=== PATIENT | male | born 1980 | race Caucasian/White ===

== ENCOUNTER 2022-02-25 19:03 | Inpatient (IN) | payer SELFPAY ==
[2022-02-25 19:14] VITALS: BP 122/53; PULSE 84; RESP 18; TEMP 36.7; O2SAT 97
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
[2022-02-25 19:30] VITALS: RESP 18
[2022-02-25] MEDS: HYDROmorphone 1 mg/mL INJ 1 mL IVP ×2 (19:30→20:22)
[2022-02-25] MEDS: ondansetron 2 mg/ML SDV 2 mL 4 MG IVP (19:30)
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
[2022-02-25] MEDS: tetanus-dipt-pertussis 0.5 mL SDV IM (20:09)
[2022-02-25 20:22] VITALS: RESP 17
--- NOTE | 2022-02-25 20:34 | ECG_ITS ---
[facility] Test Date: 2022-02-25 Pat Name: Gilberto Webster Department: Room: Gender: Male Overhead Door Technician: : 1980 Requested By: Tristan Shaw Order Number: [id number] Beau MD: Lenny Cloud M.D. Measurements Intervals [place] Rate: 64 P: 65 CO: 261 QRS: 52 QRSD: 101 T: 60 QT: 373 QTc: 387 Interpretive Statements SINUS RHYTHM WITH FIRST DEGREE AV BLOCK INTERPRETATION BASED ON A DEFAULT AGE OF 40 YEARS No previous ECG available for comparison Electronically Signed On 02-26-2022 8:37:16 CDT by Lenny Cloud M.D. [email or web address]
[2022-02-25 20:47] LABS: Basophils # 0.1 10^3/uL (0.0-0.1); Basophils % 0.5 %; Eosinophils # 0.1 10^3/uL (0.0-0.8); Eosinophils % 0.7 %; Hematocrit 38.7 % (42.0-52.0); Hemoglobin 13.2 g/dL (11.7-16.6); Lymphocytes # 3.9 10^3/uL (0.8-4.8); Mean Corpuscular HGB Conc 34.1 g/dL (30.0-36.0); Mean Corpuscular Hemoglobin 31.7 pg (28.0-34.0); Mean Platelet Volume 11.8 fL (7.4-10.4); Monocytes # 0.9 10^3/uL (0.2-0.9); Monocytes % 9.1 %; Neutrophils # 5.05 10^3/uL (1.8-7.7); Neutrophils % 50.4 %; Nucleated Red Blood Cells % 0 %; Platelet Count 225 10^3/cmm (130-400); Red Blood Count 4.16 10^6/uL (4.1-5.3); Red Cell Distribution Width 13.5 % (12.1-15.1)
[2022-02-25 20:58] LABS: Alanine Aminotransferase 9 U/L (0-41); Albumin Level 4.1 g/dL (3.5-5.2); Alkaline Phosphatase 68 IU/L (40-130); Anion Gap 19.2 (5-19); Aspartate Amino Transferase 14 U/L (0-40); Blood Urea Nitrogen 9 mg/dL (6-20); Calcium 9.3 mg/dL (8.5-10.5); Carbon Dioxide 21 mmol/L (22-29); Chloride 101 mmol/L (98-107); Globulin 2.9 g/dL (1.3-4.6); Glomerular Filtration Rate 73.4 mL/min (90-130); Glucose 114 mg/dL (65-115); Osmolality Calculated 286 mOsm/kg (285-295); Potassium 3.2 mmol/L (3.5-5.1); Sodium 138 mmol/L (136-145); Total Bilirubin 0.4 mg/dL (0.15-1.2)
[2022-02-25 22:17] VITALS: BP 114/71; PULSE 88; RESP 17; O2SAT 99
[2022-02-25 22:46] VITALS: BP 127/85; PULSE 88; RESP 18; TEMP 36.8; O2SAT 98; BMI 24.4
[2022-02-26] VITALS (30 sets, daily range): BP systolic 108–158; BP diastolic 57–96; PULSE 68–103; RESP 12–20; TEMP 36.2–37.7; O2SAT 79–100
--- NOTE | 2022-02-26 | SCC_ITS ---
PROCEDURE DONE: Amy T2 alpha 10 mm x 330 mm nail Single dynamic proximal medial to lateral screw and distal locking screws x2 129.2 seconds of fluoroscopic guidance, for a cumulative dose of 2.70 mGy, was provided to Dr. Boyer by the radiology department. C-arm images of the RIGHT tibia fibula were saved for the patient's permanent record. [facility]
[2022-02-26] MEDS: HYDROmorphone 1 mg/mL INJ 1 mL IVP ×6 (00:01→20:16)
[2022-02-26] MEDS: lactated ringers 1,000 ML 120 ML IV (00:04)
[2022-02-26] MEDS: ceFAZolin 1,000 MG in sodium chloride 0.9% (plus) 50 ML 100 MG IV ×3 (02:30→11:00)
--- NOTE | 2022-02-26 07:28 | PC.NURSE ---
Bedside report completed with GIRISH James.
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
--- NOTE | 2022-02-26 09:02 | ANES.PREANE2 ---
Pre-Anesthetic Assessment Height/Weight: Height 1.8 m Weight 79.379 kg Temp Pulse Resp BP Pulse Ox 97.9 F 71 18 120/75 94 02/26/22 07:12 02/26/22 07:12 02/26/22 07:41 02/26/22 07:12 02/26/22 07:12 Preop Diagnosis: Fracture right tibia and fibula Operation Date: 02/26/22 12:15 Proposed Procedures p IM Tibial Nail Insertion(Right) - Errol Boyer MD Familial anesthetic complications: None Was Beta Irene taken within 24 hours: N/A Was Clonidine taken within 24 hours: N/A Last intake: > 8hrs Social Alcohol and Tobacco Exam alert, oriented x 3, clear to auscultation bilaterally and regular rate & rhythm Airway Mallampati: Class III Dentition: chipped Anesthetic Plan ASA status: 2 Anesthesia: General Risk of > 500 ml blood loss (7ml/kg in children): No Medications/Allergies Allergies Allergy/AdvReac Type Severity Reaction Status Date / Time No Known Allergies Allergy Verified 02/25/22 19:17 Current Medications Generic Name Dose Route Start Last Admin Trade Name Freq PRN Reason Stop Dose Admin Hydromorphone HCl 1 mg 02/25/22 22:46 02/26/22 07:41 Hydromorphone 1 Mg/Ml Inj 1 Ml IVP 1 mg Q2H PRN Administration pain Lactated Ringer's 1,000 mls @ 120 mls/hr 02/25/22 22:46 02/26/22 00:04 Lactated Ringers IV 120 mls/hr .[id number] KEYSHA Administration Cefazolin Sodium 1,000 mg/ 50 mls @ 100 mls/hr 02/26/22 02:00 02/26/22 07:42 Sodium Chloride IV 100 mls/hr Q6H KEYSHA Administration Protocol Data Anesthesia : 02/25/22 19:22 02/25/22 19:22 Short CBC 02/25/22 Range/Units 19:22 WBC 10.0 (4.0-10.0) 10^3/uL Hgb 13.2 (11.7-16.6) g/dL Hct 38.7 L (42.0-52.0) % MCV 93.0 (80-94) fl Plt Count 225 (130-400) 10^3/cmm Neut % (Auto) 50.4 % Neut # (Auto) 5.05 (1.8-7.7) 10^3/uL BMP 02/25/22 19:22 Sodium 138 Potassium 3.2 L Chloride 101 Carbon Dioxide 21 L BUN 9 Creatinine 1.1 Glucose 114 Calcium 9.3 Liver Function 02/25/22 Range/Units 19:22 Total Bilirubin 0.4 (0.15-1.2) mg/dL AST 14 (0-40) U/L ALT 9 (0-41) U/L Alkaline Phosphatase 68 (40-130) IU/L Albumin 4.1 (3.5-5.2) g/dL Cardiac Studies: No Data to Display
[2022-02-26] MEDS: sodium chloride 0.9% 1,000 ML 30 ML IV (09:36)
--- NOTE | 2022-02-26 12:03 | XR_ITS ---
WS: [id number] INTRAOPERATIVE TECHNIQUE: 9 Spot fluoroscopic images for intraoperative purposes. FLUOROSCOPY TIME: 129.2 seconds CLINICAL INFORMATION: OR PICS COMPARISON: None. FINDINGS: Intramedullary tomasz fixation RIGHT tibia with screw fixation across the proximal and distal tibial met adiaphysis. Stable slightly displaced fracture involving the mid fibula XR/XR tibia fibula RT 2V [id number] IMPRESSION: Images obtained for intraoperative purposes.
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
[2022-02-26] MEDS: fentaNYL 50 mcg/mL INJ 2mL IVP (12:30)
[2022-02-26] MEDS: morphine 4 mg/mL SDV 1 mL IVP ×3 (13:34→16:35)
[2022-02-26] MEDS: sodium chloride 0.9% 1,000 ML 80 ML IV (13:38)
[2022-02-26] MEDS: oxyCODONE 5 mg IR Tab/Cap PO (14:59)
--- NOTE | 2022-02-26 17:52 | PC.NURSE ---
Dr. Boyer notified that patient pain not being controlled by morphine IVP or oxycodone. Orders received for hydromorphone 1mg q1h PRN.
[2022-02-27] VITALS (12 sets, daily range): BP systolic 114–139; BP diastolic 68–87; PULSE 92–113; RESP 15–20; TEMP 36.6–38.1; O2SAT 90–95
[2022-02-27] MEDS: HYDROmorphone 1 mg/mL INJ 1 mL IVP ×2 (02:17→06:05)
[2022-02-27] MEDS: sodium chloride 0.9% 1,000 ML 80 ML IV ×2 (02:17→15:19)
[2022-02-27 04:44] LABS: Basophils % 0.3 %; Eosinophils % 0.1 %; Hematocrit 30.8 % (42.0-52.0); Hemoglobin 10.9 g/dL (11.7-16.6); Lymphocytes # 1.9 10^3/uL (0.8-4.8); Lymphocytes % 15.5 %; Mean Corpuscular HGB Conc 35.4 g/dL (30.0-36.0); Mean Corpuscular Hemoglobin 31.8 pg (28.0-34.0); Mean Corpuscular Volume 89.8 fl (80-94); Mean Platelet Volume 10.7 fL (7.4-10.4); Monocytes # 1.7 10^3/uL (0.2-0.9); Monocytes % 14.3 %; Neutrophils # 8.35 10^3/uL (1.8-7.7); Neutrophils % 69.3 %; Nucleated Red Blood Cells % 0 %; Platelet Count 225 10^3/cmm (130-400); Red Blood Count 3.43 10^6/uL (4.1-5.3); Red Cell Distribution Width 13.3 % (12.1-15.1); White Blood Count 12.1 10^3/uL (4.0-10.0)
[2022-02-27] MEDS: oxyCODONE 5 mg IR Tab/Cap PO (07:36)
[2022-02-27] MEDS: oxyCODONE 5 mg IR Tab/Cap 10 MG PO ×5 (08:30→21:22)
[2022-02-27] MEDS: aspirin 325 mg EC Tablet PO (08:31)
--- NOTE | 2022-02-27 10:39 | PC.OT ---
Occupational Therapy evaluation received. Chart reviewed. Therapist attempted evaluation this morning with patient declining stating I'm not doing anything today...it hurts too bad . Medication was given 30 minutes prior to therapist arrival. Therapist educated on Occupational Therapy role, though patient continues to decline services at this time. Will attempt OT evaluation tomorrow. Asif Melgar OTR/L
--- NOTE | 2022-02-27 10:41 | PC.NURSE ---
Cefazolin I went to hang 3 dose of antibiotic on pt when I noticed that the 2nd dose was not infused, talked with Tamar and pharmacy regarding this. 3rd dose rescheduled for 1900.
[2022-02-27 18:58] LABS: Urine Appearance Clear (CLEAR); Urine Color Yellow (Yellow)
[2022-02-27 18:59] LABS: Add Urine Culture? No; Add Urine Microscopic? YES; Bacteria Urine TRACE /hpf; Bilirubin Urine Neg (Negative); Blood Urine 2+ (Negative); Glucose Urine UA 1+ (Normal); Ketones Urine Negative (Negative); Leukocyte Esterase Urine Negative (Negative); Nitrate Urine Negative (Negative); Protein Urine Neg (Negative); RBC Urine 0-4 /hpf (0-2); Squamous Epithelial Cell Urine 0-4 /hpf (0-5); Urobilinogen Urine Norm (Negative); WBC Urine 0-4 /hpf (0-5); pH Urine 7 (5-7)
--- NOTE | 2022-02-27 20:32 | PM.PN ---
Subjective Subjective: Still complains of pain, control better with po oxycodone Vitals/I&O/Wt Last Vital Signs Temp 98 F 02/27/22 16:00 Pulse 92 02/27/22 16:00 Resp 18 02/27/22 18:24 BP 131/80 02/27/22 16:00 Pulse Ox 94 02/27/22 16:00 02/27/22 02/27/22 02/27/22 06:59 14:59 22:59 Intake Total 1050 / 1406.5 1530 / 1530 170 / 1700 Output Total 450 / 1550 2685 / 2685 575 / 3260 Balance 600 / -143.5 -1155 / -1155 -405 / -1560 Weight last 48 hrs Weight 175 lb Physical Exam Narrative: Right leg soft. Swelling ankle distal to dressing. Sensation intact right foot Data : 02/27/22 04:00 02/25/22 19:22 A&P Assessment and plan (1) Open fracture of right tibia and fibula: Status: Acute (2) Status post open reduction and internal fixation (ORIF) of fracture: Continue pain meds. Mobilize with therapy. Status: Acute Attestations Medical Necessity Statement*: Home once independent with walker/crutches and pain ok. Coding Level of Care Code Acute Coach Professional Athletes for Brenna Alegre Diagnoses Status post open reduction and internal fixation (ORIF) of fracture Z98.890; Z87.81 Open fracture of right tibia and fibula S82.201B; S82.401B
[2022-02-27] MEDS: acetaminophen 325 mg Tablet 650 MG PO (23:16)
[2022-02-27] MEDS: ondansetron 2 mg/ML SDV 2 mL 4 MG IVP (23:18)
[2022-02-27] MEDS: metoclopramide 5 mg/mL SDV 2 mL 10 MG IVP (23:20)
[2022-02-28] VITALS (9 sets, daily range): BP systolic 100–124; BP diastolic 55–86; PULSE 70–105; RESP 14–18; TEMP 36.4–37.4; O2SAT 95–99
[2022-02-28] MEDS: oxyCODONE 5 mg IR Tab/Cap 10 MG PO ×3 (02:01→10:21)
[2022-02-28] MEDS: sodium chloride 0.9% 1,000 ML 80 ML IV (04:35)
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
[2022-02-28] MEDS: aspirin 325 mg EC Tablet PO (08:35)
--- NOTE | 2022-02-28 12:00 | PC.OT ---
OT EVALUATION HELD THIS DATE PATIENT IS SCHEDULED FOR DISCHARGE.
== END 2022-02-28 12:41 | disposition home or self-care (01) | DRG 494 ==
LOC: ER 20:37 → MEDSURG 21:20
PROVIDERS: Admitting Provider Orthopaedic Surgery; Emergency Provider Emergency Medicine; Visit Provider Orthopaedic Surgery
PROC: 0QSG06Z Reposition Right Tibia with Intramedullary Internal Fixation Device, Open Approach (ICD-10-PCS; principal; 2022-02-26 11:45)
DX: S82.231B Displaced oblique fracture of shaft of right tibia, initial encounter for open fracture type I or II (principal); S82.431B Displaced oblique fracture of shaft of right fibula, initial encounter for open fracture type I or II; W55.32XA Struck by other hoof stock, initial encounter
CPT/HCPCS: 12001; 36415; 71045; 73590; 76000; 80053; 81001; 85025; 90471; 90715; 93005; 96365; 96375; 96376; 97110; 97161; 99285; C1713; J0690; J1170; J2250; J2270; J2405; J2704; J2765; J3010; J7030

== ENCOUNTER → 2022-03-14 09:22 | Outpatient (BNVA) | payer SELFPAY | PROVIDERS: Visit Provider Nurse Practitioner Family | DX: S82.201D Unspecified fracture of shaft of right tibia, subsequent encounter for closed fracture with routine healing (principal); S82.401D Unspecified fracture of shaft of right fibula, subsequent encounter for closed fracture with routine healing; X58.XXXD Exposure to other specified factors, subsequent encounter | CPT/HCPCS: 73590 ==

== ENCOUNTER → 2025-05-28 07:58 | Outpatient (BNVA) | payer SELFPAY | DX: R39.9 Unspecified symptoms and signs involving the genitourinary system (principal) | CPT/HCPCS: 81000; 87086 ==

== ENCOUNTER 2025-05-28 19:16 | Inpatient (IN) | payer SELFPAY ==
[2025-05-28 19:22] VITALS: BP 119/57; PULSE 92; RESP 18; TEMP 36.8; O2SAT 98; BMI 22.6
[2025-05-28 20:32] LABS: Hematocrit 36.1 % (37-53); Hemoglobin 12.80 g/dL (11.27-16.99); Mean Corpuscular HGB Conc 35.5 g/dL (30-55); Mean Corpuscular Hemoglobin 31.1 pg (27-33); Mean Corpuscular Volume 87.8 fl (82-101); Nucleated Red Blood Cells % 0 %; Platelet Count 294 10^3/cmm (157-399); Red Blood Count 4.11 10^6/uL (3.85-5.65); White Blood Count 9.75 10^3/uL (3.29-11.43)
[2025-05-28 20:51] LABS: Albumin Level 3.7 g/dL (3.5-5.2); Alkaline Phosphatase 269 U/L (40-130); Anion Gap 14.9 (5-19); Blood Urea Nitrogen 13 mg/dL (6-20); Calcium 9.2 mg/dL (8.5-10.5); Carbon Dioxide 26 mmol/L (22-29); Chloride 101 mmol/L (98-107); Creatinine Clr Calc Pharmacy 123.1431; Globulin 3.8 g/dL (1.3-4.6); Glucose 98 mg/dL (65-115); Osmolality Calculated 286 mOsm/kg (285-295); Potassium 3.9 mmol/L (3.5-5.1); Sodium 138 mmol/L (136-145); Total Protein 7.5 g/dL (6.6-8.7)
[2025-05-28 21:02] LABS: Alanine Aminotransferase 3306 U/L (0-41)
[2025-05-28 21:03] LABS: Aspartate Amino Transferase 1902 U/L (0-40)
[2025-05-28 21:57] VITALS: BP 127/78; PULSE 91; RESP 16; O2SAT 98
[2025-05-28 22:23] LABS: INR 0.97 (0.8-1.2); Prothrombin Time 13.60 SECONDS (12.1-14.9)
[2025-05-28 22:24] LABS: Partial Thromboplastin Time 30.3 SECONDS (23.9-36.7)
--- NOTE | 2025-05-28 22:25 | ED_ITS ---
HPI - Recheck/Abnormal Lab/Rx 2 General: Chief Complaint: Recheck/Abnormal Lab/Rx Stated Complaint: urine discolored confused eyes yellow Time Seen by Provider: 05/28/25 21:52 Source: patient Mode of arrival: ambulatory Limitations: no limitations History of Present Illness: Patient is a 44-year-old male who presents to the emergency department complaining of dizziness for the past 5 days. Along with the dizziness he notes very dark urine, confusion, and noticing that his eyes and skin have been yellow. Denies taking any Tylenol, does report a history of IV drug use however, but states he does not share needles. States he used to have history of alcoholism but has not drank for the past 10 years. He is not reporting any fever or chills, abdominal pain, nausea or vomiting, stool abnormalities, or seizure-like activity. Denies any recent transfusions. No travel to any endemic areas. At this time he is not showing any signs of confusion or altered mental status, he is not endorsing any easy bruising or bleeding. While in the waiting room critical result of total bilirubin of 12.1. His vitals are stable at this time. MD complaint: other (Dizziness, confusion, scleral icterus, jaundice, dark urine) Related Data Home Medications ?Medication ?Instructions ?Recorded ?Confirmed No Known Home Medications 05/28/2510/21 Allergies Allergy/AdvReac Type Severity Reaction Status Date / Time No Known Allergies Allergy Verified 05/28/25 18:42 Review of Systems 2 General: Reports: 10 or more systems reviewed and unremarkable except in HPI and below Const: Denies: fever(s), chills or fatigue Eyes: Reports: yellow eyes; Denies: change in vision ENMT: Denies: throat pain, ear or mastoid pain or nasal discharge Card: Denies: chest pain, palpitations, swelling of feet/ankles or lightheadedness Resp: Denies: dyspnea, productive cough or wheezing GI: Denies: abdominal pain, nausea, vomiting, diarrhea or constipation : Reports: other (Dark urine); Denies: flank pain, difficulty urinating, dysuria or urinary frequency Musc: Denies: neck pain, back pain or joint pain Skin/Breast: Reports: jaundice; Denies: rash Neuro: Reports: dizziness and confusion; Denies: headache(s), numbness in extremities, weakness in extremities or behavioral changes Freddie/Lymph: Denies: easy bruising or easy bleeding PFSH ED 2 PFSH: Social History Smoking and tobacco/nicotine status: never used tobacco/nicotine Physical Exam 2 Const: COMMON NORMALS: no acute distress, patient oriented x3 and no limitations GENERAL APPEARANCE: cooperative, comfortable and well developed ORIENTATION/CONSCIOUSNESS: Yes awake, Yes oriented to person, Yes oriented to place and Yes oriented to time OTHER: Jaundiced HENMT: COMMON NORMALS: normocephalic, atraumatic and hearing grossly normal bilaterally HEAD & SCALP: normocephalic and atraumatic Eye: COMMON NORMALS: Equal, round and reactive pupils present and EOMs intact bilaterally PUPIL: Yes Equal, round and reactive pupils present OTHER: Scleral icterus Neck/C-Spine: COMMON NORMALS: full ROM, supple and no JVD Resp: COMMON NORMALS: normal respiratory effort, No retractions, No use of accessory muscles and clear to auscultation bilaterally AUSCULTATION: clear to auscultation bilaterally Cardio: COMMON NORMALS: no JVD, regular rate, regular rhythm, No clicks present (Cardio), No murmurs present (Cardio) and No rub (Cardio) RATE: r egular rate RHYTHM: regular rhythm GI: COMMON NORMALS: Normal to inspection, nondistended, normoactive bowel sounds present, Soft to palpation and non-tender AUSCULTATION: Yes normoactive bowel sounds PALPATION: Yes Soft to palpation RECTAL EXAM: Yes deferred Extremity: COMMON NORMALS: normal to inspection, full ROM and capillary refill normal Neuro: COMMON NORMALS: patient oriented x3, moves all extremities, no focal motor deficits and no sensory deficits noted SENSORIUM/ORIENTATION: Yes oriented to person, Yes oriented to place and Yes oriented to time Course 2 Vital Signs: Vital signs: Vital Signs Temperature 98.2 F 05/28/25 19:22 Pulse Rate 76 05/29/25 00:24 Respiratory Rate 16 05/29/25 00:24 Blood Pressure 103/48 05/29/25 00:24 Pulse Oximetry 95 05/29/25 00:24 Oxygen Delivery Me thod Room Air 05/29/25 00:24 MDM - Recheck/Abnormal Lab/Rx Medical Decision Making This patient presenting for dizziness and confusion, jaundice and scleral icterus as well as dark-colored urine. He admits to me that he is an IV drug user, in the past has stated he woke up with needles in his arms and unknown where he got them from. He does not endorse this recently, he states that this was a while back. Also denies alcohol history. He is not having any abdominal pain or fevers, and is not altered at this time. However on exam there is notable jaundice and scleral icterus. Total bilirubin is 12.9 and LFTs are significantly elevated, ALT>AST. He is reactive for acute hepatitis B, ultrasound and imaging pending any obstructive etiology. I did speak to Dr. Edwards, hospitalist, agreed to accept the patient into the hospital pending there is no obstructive cause of his hepatitis. Patient has remained stable clinically and with vitals throughout the ED stay, I did discuss this patient's case with Dr. Araya who will put in admit orders. Lab Data 05/28/25 20:17 05/28/25 20:17 Laboratory Results WBC 9.75 10^3/uL (3.29-11.43) 05/28/25 20:17 RBC 4.11 10^6/uL (3.85-5.65) 05/28/25 20:17 Hgb 12.80 g/dL (11.27-16.99) 05/28/25 20:17 Hct 36.1 % (37-53) L 05/28/25 20:17 MCV 87.8 fl (82-101) 05/28/25 20:17 MCH 31.1 pg (27-33) 05/28/25 20:17 MCHC 35.5 g/dL (30-55) 05/28/25 20:17 RDW 19.0 % (12.1-15.1) H 05/28/25 20:17 Plt Count 294 10^3/cmm (157-399) 05/28/25 20:17 MPV 11.5 fL (7.4-10.4) H 05/28/25 20:17 Neut % (Auto) 40.9 % 05/28/25 20:17 Lymph % (Auto) 40.8 % 05/28/25 20:17 [place] % (Auto) 16.2 % 05/28/25 20:17 Eos % (Auto) 1.1 % 05/28/25 20:17 Baso % (Auto) 0.8 % 05/28/25 20:17 Neut # (Auto) 3.98 10^3/uL (1.8-7.7) 05/28/25 20:17 Lymph # (Auto) 4.0 10^3/uL (0.8-4.8) 05/28/25 20:17 [place] # (Auto) 1.6 10^3/uL (0.2-0.9) H 05/28/25 20:17 Eos # (Auto) 0.1 10^3/uL (0.0-0.8) 05/28/25 20:17 Baso # (Auto) 0.1 10^3/uL (0.0-0.1) 05/28/25 20:17 Nucleated RBC % (auto) 0 % 05/28/25 20:17 Nucleated RBCs # 0.0 /100WBC 05/28/25 20:17 PT 13.60 SECONDS (12.1-14.9) 05/28/25 20:17 INR 0.97 (0.8-1.2) 05/28/25 20:17 APTT 30.3 SECONDS (23.9-36.7) 05/28/25 20:17 Sodium 138 mmol/L (136-145) 05/28/25 20:17 Potassium 3.9 mmol/L (3.5-5.1) 05/28/25 20:17 Chloride 101 mmol/L (98-107) 05/28/25 20:17 Carbon Dioxide 26 mmol/L (22-29) 05/28/25 20:17 Anion Gap 14.9 (5-19) 05/28/25 20:17 BUN 13 mg/dL (6-20) 05/28/25 20:17 Creatinine 0.8 mg/dL (0.7-1.2) 05/28/25 20:17 GFR Calculation 104.5 mL/min (90-130) 05/28/25 20:17 Glucose 98 mg/dL (65-115) 05/28/25 20:17 Calculated Osmolality 286 mOsm/kg (285-295) 05/28/25 20:17 Calcium 9.2 mg/dL (8.5-10.5) 05/28/25 20:17 Total Bilirubin 12.9 mg/dL (0.15-1.2) H* 05/28/25 20:17 AST 1902 U/L (0-40) H 05/28/25 20:17 ALT 3306 U/L (0-41) H 05/28/25 20:17 Alkaline Phosphatase 269 U/L (40-130) H 05/28/25 20:17 Total Protein 7.5 g/dL (6.6-8.7) 05/28/25 20: Albumin 3.7 g/dL (3.5-5.2) 05/28/25 20: Globulin 3.8 g/dL (1.3-4.6) 05/28/25 20: Lipase 137 U/L (13-60) H 05/28/25 20:17 Urine Color Dark yellow (Yellow) A 05/28/25:35 Urine Appearance Clear (CLEAR) 05/28/25 22:35 Urine pH 5.5 (5-7) 05/28/25 22:35 Ur Specific [place] 1.005 (1.005-1.030) 05/28/25 22:35 Urine Protein Negative (Negative) 05/28/25 22:35 Urine Glucose (UA) Negative (Normal) 05/28/25: Urine Ketones Negative (Negative) 05/28/25: Urine Blood Negative (Negative) 05/28/25: Urine Nitrate Negative (Negative) 05/28/25:35 Urine Bilirubin 1+ (Negative) H 05/28/25:35 Urine Urobilinogen 1.0 mg/dL (Negative) 05/28/25:35 Ur Leukocyte Esterase Negative (Negative) 05/28/25: Amorphous Sediment Not Reportable 05/28/25: Acetaminophen < 5.0 ug/mL (10-30) L 05/28/25 20: Hepatitis A IgM Ab Non-reactive (Nonreactive) 05/28/25 20: Hep Bs Antigen Reactive (Nonreactive) H 05/28/25 20:17 Hep B Core IgM Ab Reactive (Nonreactive) H 05/28/25 20:17 Hepatitis C Antibody Non-reactive (Nonreactive) 05/28/25 20: All radiology interpretation(s) finalized by discharge Discharge Plan Discharge Patient Disposition: Admitted As Inpatient Clinical Impression: Acute hepatitis B Condition: Stable Coding Level of Care Code ED Director Client Services for Brenna Alegre
[2025-05-28 22:28] LABS: Lipase 137 U/L (13-60)
[2025-05-28 22:31] LABS: Hepatitis A Antibody IgM Non-Reactive (Nonreactive)
[2025-05-28 22:39] LABS: Add Urine Microscopic? NO
[2025-05-28 22:42] LABS: Acetaminophen < 5.0 ug/mL (10-30)
[2025-05-28 22:43] LABS: Glucose Urine UA Negative (Normal); Nitrate Urine Negative (Negative); Specific Gravity, Urine 1.005 (1.005-1.030)
[2025-05-28 22:48] LABS: Charge for UA Resulting for Rev
[2025-05-28 23:32] VITALS: BP 130/78; PULSE 79; O2SAT 95
[2025-05-28 23:44] LABS: Hepatitis B Surface Antigen Reactive (Nonreactive)
[2025-05-29] VITALS (11 sets, daily range): BP systolic 97–120; BP diastolic 48–79; PULSE 58–83; RESP 13–16; TEMP 36.6–36.7; O2SAT 95–100; BMI 22.6
--- NOTE | 2025-05-29 00:50 | CTR_ITS ---
PROCEDURE INFORMATION: Exam: CT Abdomen And Pelvis With Contrast Exam date and time: 05/29/2025 1:02 AM Age: 44 years old Clinical indication: Other: Jaundice; Additional info: Jaundice/hep b TECHNIQUE: Imaging protocol: Computed tomography of the abdomen and pelvis with contrast. Radiation optimization: All CT scans at this facility use at least one of these dose optimization techniques: automated exposure control; mA and/or kV adjustment per patient size (includes targeted exams where dose is matched to clinical indication); or iterative reconstruction. Contrast material: OMNI 350; Contrast volume: 100 ml; Contrast route: INTRAVENOUS (IV); COMPARISON: US gall bladder [id number] 05/29/2025 12:17 AM RADIATION DOSE METRICS: Total DLP (mGy-cm): 416.42 FINDINGS: Lungs: Mild emphysematous changes suspected. Liver: Hepatic steatosis. Gallbladder and biliary ducts: Normal. No calcified stones. No ductal dilation. Pancreas: Normal. No ductal dilation. Spleen: Normal. No splenomegaly. Adrenal glands: Normal. No mass. Kidneys and ureters: Normal. No hydronephrosis. Stomach and bowel: Minimal diverticulosis without diverticulitis. Appendix: No evidence of appendicitis. Intraperitoneal space: Unremarkable. No free air. No significant fluid collection. Vasculature: Unremarkable. No abdominal aortic aneurysm. Lymph nodes: Unremarkable. No enlarged lymph nodes. Urinary bladder: Unremarkable as visualized. Reproductive: Unremarkable as visualized. Bones/joints: Unremarkable. No acute fracture. Soft tissues: Small bilateral fat containing inguinal hernias. CT/CT abdomen pelvis w con* [id number] IMPRESSION: 1. Negative for acute inflammatory process in the abdomen or pelvis. 2. Mild emphysematous changes suspected. 3. Hepatic steatosis. 4. Small bilateral fat containing inguinal hernias. 5. Minimal diverticulosis without diverticulitis.
[2025-05-29 01:15] LABS: Salicylate < 0.3 mg/dL (3-10)
[2025-05-29] MEDS: iohexol 350 mg/mL 500 mL Btl (per mL) IV (01:20)
[2025-05-29] MEDS: sodium chlor 0.9% + KCl 20 mEq 20 MEQ/1,000 ML BAG 150 MEQ IV ×3 (02:10→15:26)
--- NOTE | 2025-05-29 02:43 | P.HP_ITS ---
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 the patient reported the symptoms started around 4-5 days ago and was associated with nausea and mild vomiting for one day and the subsided by itself. no blood in the vomitus or any stools. no easy brusing and no altered mentation. patient reported having on and off fevers. no abd distention or any LLE. no PMH of any liver condition and does not drink binge drinking of alcohol. he smokes marijuana and ciggarettes. not active drug abuse, no PMH of blood transfusions at childhood. no vaccinations history as patient does not follow up with any PCP. use to have more than one sexual partners before but currently active with one sexual partner. Medications/Allergies Home Medications ?Medication ?Instructions ?Recorded ?Confirmed ?Last Taken ?Type No Known Home Medications 05/28/2510/21 Unknown History Allergies Allergy/AdvReac Type Severity Reaction Status Date / Time No Known Allergies Allergy Verified 05/28/25 18:42 PFSH Acute 2 PFSH: Social History Smoking and tobacco/nicotine status: never used tobacco/nicotine Vitals/I&O/Wt Last Vital Signs Temp 98.2 F 05/28/25 19:22 Pulse 76 05/29/25 00:24 Resp 16 05/29/25 00:24 BP 103/48 05/29/25 00:24 Pulse Ox 95 05/29/25 00:24 O2 Del Method Room Air 05/29/25 00:24 Weight last 48 hrs Weight 73.709 kg Physical Exam 2 Narrative: General: Alert and oriented, lying comfortably without any distress, HEENT: Normocephalic, atraumatic, scleral icterus +breana, no tremors Cardio: normal rate rhythm, normal S1-S2 without any murmurs, rubs, or gallops and JVD normal Respiratory: normal vascular breathing on auscultation without any wheezes, stridor, rhonchi GI: Abdomen soft, nontender, nondistended, normoactive bowel sounds present all 4 quadrants, Neuro: intact cranial nerves motor and sensory and cerebellar/coordination function without any focal neurological deficit Behavior: Appropriate and cooperative Extremities: Adequate palpable pulses, no edema or cyanosis observed Skin: jaundiced skin generally Data 05/28/25 20:17 05/28/25 20:17 Micro: Microbiology 05/29/25 02:24 Blood Culture - Preliminary Blood SPECIMEN COLLECTED 05/29/25 02:23 Blood Culture - Preliminary Blood SPECIMEN COLLECTED A&P Assessment and plan 1. Acute hepatitis B: - send for HIV and COVID 19 - symptomatic management with adequate hydration - avoid hepatotoxic drugs, no more than 1-2gm of tylenol per day - check for coagulation profile daily to assess liver functions - follow transaminases - neuro checks - monitor vitals - patient thoroughly counseled about the course of illness, considering it can be resolved, can become chronic and may lead to acute liver failure that may need later escalation of care, understand without any language barrier and agree with the plan of care PDMP PDMP Reviewed: Not Reviewed Attestations 2 Medical Necessity Statement*: Gilberto Webster's hospital stay will require greater than 2 midnights for acute hepatitis B infection Time Spent in Patient Care: 16 - 35 minutes (>than 50% of time sp ent in counselling and/or direct pt care on unit) . Other Attestations: Patient condition has been discussed at length with the patient/family, I have independently reviewed the chart labs imaging/diagnostics/EKG. the goals of care and code status with the patient/family/NOK/legal veterans service representative, and documented accordingly. The patient/family has been informed about the current condition and further plan of care. Agreed with the plan of care and understood without any language barrier. Every effort was made to ensure accuracy of interventional technologist. Any obvious errors or omissions should be clarified with the author of the document. Coding Level of Care Code Acute Code for Chg Fwd Diagnoses Acute hepatitis B B16.9
[2025-05-29 02:47] LABS: INR 0.99 (0.8-1.2); Prothrombin Time 13.80 SECONDS (12.1-14.9)
[2025-05-29 02:50] LABS: Lactic Sepsis W/Reflex 1.3 mmol/L (0.5-2.2)
[2025-05-29 02:51] LABS: Magnesium 2.1 mg/dL (1.7-2.3)
[2025-05-29 03:44] LABS: HIV 1 & 2 Antigen Non-Reactive (Non-Reactiv)
[2025-05-29 03:53] LABS: PCP Screen Urine Negative (Negative)
[2025-05-29] MEDS: pantoprazole 40 mg SDV IVP (05:46)
[2025-05-29] MEDS: heparin 5,000 unit/mL INJ 1 mL 5000 UNIT SUBCUT ×2 (05:46→17:09)
[2025-05-29 05:48] LABS: Respiratory Syncytial Virus Ce NEGATIVE (Negative); SARS-CoV-2 PCR NEGATIVE (Negative)
[2025-05-29 12:37] LABS: Alcohol Level < 10 mg/dL (0-10)
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
--- NOTE | 2025-05-29 21:55 | USR_ITS ---
PROCEDURE INFORMATION: Exam: US Abdomen, Limited; Right Upper Quadrant Exam date and time: 05/29/2025 12:17 AM Age: 44 years old Clinical indication: Abdominal tenderness; Additional info: Scleral icterus, jaundice, dizzy, t bili 12, ruq US TECHNIQUE: Imaging protocol: Real time ultrasound of the abdomen with image documentation. Limited exam focused on the right upper quadrant. COMPARISON: No relevant prior studies available. FINDINGS: Liver: Normal. No masses. Gallbladder: Normal. No gallstones. There is no gallbladder wall thickening. Biliary ducts: Normal. No stones. No dilation. Pancreas: Visualized pancreas is unremarkable. Right kidney: Normal. No mass. No hydronephrosis. US/US gall bladder [id number] IMPRESSION: No acute findings.
[2025-05-30] MEDS: sodium chlor 0.9% + KCl 20 mEq 20 MEQ/1,000 ML BAG 150 MEQ IV ×2 (01:48→04:46)
[2025-05-30 03:59] VITALS: BP 122/74; PULSE 73; RESP 21; TEMP 36.6; O2SAT 97
[2025-05-30] MEDS: heparin 5,000 unit/mL INJ 1 mL 5000 UNIT SUBCUT (04:32)
[2025-05-30] MEDS: pantoprazole 40 mg SDV IVP (04:32)
[2025-05-30 05:18] LABS: Hematocrit 32.4 % (37-53); Hemoglobin 11.50 g/dL (11.27-16.99); Mean Corpuscular HGB Conc 35.5 g/dL (30-55); Mean Corpuscular Hemoglobin 30.5 pg (27-33); Mean Corpuscular Volume 85.9 fl (82-101); Nucleated Red Blood Cells % 0 %; Platelet Count 250 10^3/cmm (157-399); Red Blood Count 3.77 10^6/uL (3.85-5.65); White Blood Count 8.13 10^3/uL (3.29-11.43)
[2025-05-30 05:40] LABS: Albumin Level 3.1 g/dL (3.5-5.2); Alkaline Phosphatase 251 U/L (40-130); Anion Gap 11.1 (5-19); Blood Urea Nitrogen 7 mg/dL (6-20); Calcium 8.6 mg/dL (8.5-10.5); Carbon Dioxide 24 mmol/L (22-29); Chloride 107 mmol/L (98-107); Globulin 3.2 g/dL (1.3-4.6); Glucose 112 mg/dL (65-115); Osmolality Calculated 285 mOsm/kg (285-295); Potassium 4.1 mmol/L (3.5-5.1); Sodium 138 mmol/L (136-145); Total Protein 6.3 g/dL (6.6-8.7)
[2025-05-30 05:45] LABS: Creatinine Clr Calc Pharmacy 194.5917
[2025-05-30 05:48] LABS: Alanine Aminotransferase 2336 U/L (0-41); Aspartate Amino Transferase 1706 U/L (0-40)
[2025-05-30 08:00] VITALS: BP 109/74; PULSE 75; RESP 14; TEMP 36.4; O2SAT 94
[2025-05-30 08:04] LABS: Hepatitis B Envelope Antigen REACTIVE (NON-REACTIVE)
[2025-05-30 10:49] VITALS: BP 120/74; PULSE 85; RESP 16; TEMP 36.6; O2SAT 95
--- NOTE | 2025-05-30 11:06 | PC.NURSE ---
Patient discharge collected belongings and given discharge packet answered all questions and given appointment information.
--- NOTE | 2025-05-30 20:54 | PM.DCS ---
Discharge Providers Date of Admission: 05/29/25 03:30 Date of Discharge: May 30, 2025 Attending Provider at Admission: Katherine Edwards MD Attending Provider at Discharge: Cheryl Causey MD Diagnoses at Discharge Discharge Diagnosis 1. Acute hepatitis B: Other Information Additional DC diagnoses/information: 44 M with h/o substance abuse presented with jaundive. He was noted to have acute hepatitis with grossly elevated T. bili at 12.9. Predominantly direct fraction. AST ALT elevated at 1900 and 2700 respectively. Mildly elevated alkaline phosphatase however no signs of biliary obstruction noted on imaging. He tested positive for acute hepatitis B with a positive surface antigen. Follow-up testing including HBV DNA and E antigen were added in the hospital which are pending at discharge. Patient was started on treatment with tenofovir disoproxil in the hospital which he continued at the time of discharge given acute hepatitis with markedly elevated liver enzymes and concern for progression to acute liver failure. He received supportive management with IV fluids and hydration and had improving LFTs at discharge He will f/up with infectious disease clinic in one week. TDF chosen over TAF due to affordability (TAF $2000; TDF $25). He is in the process of applying for insurance Reason for Visit Reason for Visit: urine discolored confused eyes yellow Discharge Data Studies Completed and Pending Completed Studies During Hospitalization Category Date Time Status CT abdomen pelvis w con* [id number] Urgent Cat Scan 05/29/25 00:50 Completed US gall bladder [id number] Stat Ultrasound 05/29/25 21:55 Completed Radiology Impressions Abdomen/Pelvis CT 05/29/25 00:50 IMPRESSION: 1. Negative for acute inflammatory process in the abdomen or pelvis. 2. Mild emphysematous changes suspected. 3. Hepatic steatosis. 4. Small bilateral fat containing inguinal hernias. 5. Minimal diverticulosis without diverticulitis. Gallbladder Ultrasound 05/29/25 21:55 IMPRESSION: No acute findings. Laboratory Results WBC 8.13 10^3/uL (3.29-11.43) 05/30/25 04:35 RBC 3.77 10^6/uL (3.85-5.65) L 05/30/25 04:35 Hgb 11.50 g/dL (11.27-16.99) 05/30/25 04:35 Hct 32.4 % (37-53) L 05/30/25 04:35 MCV 85.9 fl (82-101) 05/30/25 04:35 MCH 30.5 pg (27-33) 05/30/25 04:35 MCHC 35.5 g/dL (30-55) 05/30/25 04:35 RDW 20.0 % (12.1-15.1) H 05/30/25 04:35 Plt Count 250 10^3/cmm (157-399) 05/30/25 04:35 MPV 11.9 fL (7.4-10.4) H 05/30/25 04:35 Neut % (Auto) 34.6 % 05/30/25 04:35 Lymph % (Auto) 43.4 % 05/30/25 04:35 [place] % (Auto) 18.6 % 05/30/25 04:35 Eos % (Auto) 2.2 % 05/30/25 04:35 Baso % (Auto) 1.0 % 05/30/25 04:35 Neut # (Auto) 2.81 10^3/uL (1.8-7.7) 05/30/25 04:35 Lymph # (Auto) 3.5 10^3/uL (0.8-4.8) 05/30/25 04:35 [place] # (Auto) 1.5 10^3/uL (0.2-0.9) H 05/30/25 04:35 Eos # (Auto) 0.2 10^3/uL (0.0-0.8) 05/30/25 04:35 Baso # (Auto) 0.1 10^3/uL (0.0-0.1) 05/30/25 04:35 Nucleated RBC % (auto) 0 % 05/30/25 04:35 Nucleated RBCs # 0.0 /100WBC 05/30/25 04:35 PT 13.80 SECONDS (12.1-14.9) 05/29/25 02:23 INR 0.99 (0.8-1.2) 05/29/25 02:23 APTT 30.3 SECONDS (23.9-36.7) 05/28/25 20:17 Sodium 138 mmol/L (136-145) 05/30/25 04:35 Potassium 4.1 mmol/L (3.5-5.1) 05/30/25 04:35 Chloride 107 mmol/L (98-107) 05/30/25 04:35 Carbon Dioxide 24 mmol/L (22-29) 05/30/25 04:35 Anion Gap 11.1 (5-19) 05/30/25 04:35 BUN 7 mg/dL (6-20) 05/30/25 04:35 Creatinine 0.5 mg/dL (0.7-1.2) L 05/30/25 04:35 GFR Calculation 179.8 mL/min (90-130) H 05/30/25 04:35 Glucose 112 mg/dL (65-115) 05/30/25 04:35 Calculated Osmolality 285 mOsm/kg (285-295) 05/30/25 04:35 Lactic Acid 1.3 mmol/L (0.5-2.2) 05/29/25 02:23 Calcium 8.6 mg/dL (8.5-10.5) 05/30/25 04:35 Phosphorus 3.1 mg/dL (2.5-4.5) 05/29/25 02:23 Magnesium 2.1 mg/dL (1.7-2.3) 05/29/25 02:23 Total Bilirubin 10.1 mg/dL (0.15-1.2) H* 05/30/25 04:35 Direct Bilirubin 8.82 mg/dL (0.00-0.30) H 05/29/25 02:24 Indirect Bilirubin 3.18 05/29/25 02:24 AST 1706 U/L (0-40) H 05/30/25 04:35 ALT 2336 U/L (0-41) H 05/30/25 04:35 Alkaline Phosphatase 251 U/L (40-130) H 05/30/25 04:35 Liver Fibrosis Ref ID Not Reportable 05/29/25 12:04 Liver GGT 248 U/L (3-95) H 05/29/25 12:04 Liver Total Bilirubin 11.3 mg/dL (0.2-1.2) H 05/29/25 12:04 Liver Apolipoprotein A1 48 mg/dL (94-176) L 05/29/25 12:04 Liver Fibrosis ALT 2455 U/L (9-46) H 05/29/25 12:04 Liver Haptoglobin 62 mg/dL (43-212) 05/29/25 12:04 Liver Fib Acti Score TNP 05/29/25 12:04 Liver Fibrosis Interp Not Reportable 05/29/25 12:04 Liver Fibrosis Stage Not Reportable 05/29/25 12:04 Liver Fibrosis Footnote Not Reportable 05/29/25 12:04 Necroinflammator Score Not Reportable 05/29/25 12:04 Necroinflammator Grade Not Reportable 05/29/25 12:04 Necroinflam Interp Not Reportable 05/29/25 12:04 Total Protein 6.3 g/dL (6.6-8.7) L 05/30/25 04:35 Albumin 3.1 g/dL (3.5-5.2) L 05/30/25 04:35 Globulin 3.2 g/dL (1.3-4.6) 05/30/25 04:35 Qrmfn-3-Uosjldfiplhas 238 mg/dL (106-279) 05/29/25 12:04 Lipase 137 U/L (13-60) H 05/28/25 20:17 Urine Color Dark yellow (Yellow) A 05/28/25 22:35 Urine Appearance Clear (CLEAR) 05/28/25 22:35 Urine pH 5.5 (5-7) 05/28/25 22:35 Ur Specific [place] 1.005 (1.005-1.030) 05/28/25 22:35 Urine Protein Negative (Negative) 05/28/25 22:35 Urine Glucose (UA) Negative (Normal) 05/28/25 22:35 Urine Ketones Negative (Negative) 05/28/25 22:35 Urine Blood Negative (Negative) 05/28/25 22:35 Urine Nitrate Negative (Negative) 05/28/25 22:35 Urine Bilirubin 1+ (Negative) H 05/28/25 22:35 Urine Urobilinogen 1.0 mg/dL (Negative) 05/28/25 22:35 Ur Leukocyte Esterase Negative (Negative) 05/28/25 22: Amorphous Sediment Not Reportable 05/28/25 22:35 Salicylates < 0.3 mg/dL (3-10) L 05/28/25 20:17 Urine Opiates Screen Negative ng/mL (Negative) 05/28/25 22:35 Acetaminophen < 5.0 ug/mL (10-30) L 05/28/25 20:17 Ur Barbiturates Screen Negative ng/mL (Negative) 05/28/25 22:35 Ur Phencyclidine Scrn Negative ng/mL (Negative) 05/28/25 22:35 Ur Amphetamines Screen Positive ng/mL (Negative) H 05/28/25 22:35 U Benzodiazepines Scrn Negative ng/mL (Negative) 05/28/25 22:35 Urine Cocaine Screen Negative ng/mL (Negative) 05/28/25 22:35 U Marijuana (THC) Screen Positive ng/mL (Negative) H 05/28/25 22:35 Ethyl Alcohol < 10 mg/dL (0-10) 05/29/25 12:04 Hepatitis A IgM Ab Non-reactive (Nonreactive) 05/28/25 20:17 Hep Bs Antigen Reactive (NON-REACTIVE) A 05/28/25 20:17 Hep Bs Antigen Reactive (Nonreactive) H 05/28/25 20:17 Hep Bs Ag Confirmation Not Reportable 05/28/25 20:17 Hep Bs Antibody < 3.5 (11.5-1000) L 05/29/25 12:04 Hep B Core IgM Ab Reactive (Nonreactive) H 05/28/25 20:17 Hepatitis B DNA (PCR) 6.01 Log IU/mL (NOT DETECTED) H 05/29/25 12:04 Hep B DNA Interpret [id number] IU/mL (NOT DETECTED) H 05/29/25 12:04 Hepatitis Be Antibody Non-reactive (NON-REACTIVE) 05/29/25 12:04 Hepatitis Be Antigen Reactive (NON-REACTIVE) A 05/29/25 12:04 Hepatitis C Antibody Non-reactive (Nonreactive) 05/28/25 20:17 HIV 1&2 Ab & HIV 1 Ag Non-reactive (Non-Reactiv) 05/29/25 02:23 HIV 1&2 Antibody Non-reactive (Non-Reactiv) 05/29/25 02:23 Influenza A (PCR) Negative (Negative) 05/29/25 03:17 Influenza Type B (PCR) Negative (Negative) 05/29/25 03:17 RSV (PCR) Negative (Negative) 05/29/25 03:17 SARS-CoV-2 (PCR) Negative (Negative) 05/29/25 03:17 Vitals Last Vital Signs Temp 97.9 F 05/30/25 10:49 Pulse 85 05/30/25 10:49 Resp 16 05/30/25 10:49 BP 120/74 05/30/25 10:49 Pulse Ox 95 05/30/25 10:49 O2 Del Method Room Air 05/30/25 08:00 Discharge Plan Discharge Patient Disposition: Home Condition: Stable Prescriptions: New tenofovir disoproxil fumarate [Viread] 300 mg tablet 300 mg PO DAILY Qty: 30 6RF pantoprazole [Protonix] 40 mg tablet,delayed release (DR/EC) 40 mg PO DAILY Qty: 30 0RF Continued calcium carbonate [Tums Ultra] 400 mg calcium (1,000 mg) Tablet,Chewable 800 mg PO DAILY PRN (Reason: Acid Reflux) Discontinued aspirin [Sameera Aspirin] 325 mg Tablet 325 mg PO Q4H Rx Instructions: while awake diphenhydramine HCl [Benadryl] 25 mg Capsule 25 mg PO TID PRN (Reason: Cold Symptoms) Day-Night Severe Cold-Flu 61-23-30-650 mg/30 mL Liquid, Sequential 30 ml PO Q6H PRN (Reason: cold flu) Discharge Order = DC NOW: Discharge Order (Routine); Ordered 05/30/25 Ordered By: Cheryl Causey Referrals: [facility] [Provider Group, Infectious Disease] - 06/04/25 11:30 am Referral Note: acute hep B [facility] [Staff Physician, Behavioral Health] Referral Note: Come to [facility] as a walk in assessment, Ask for referral for [facility]. Come in the morning open 7:30-4PM. M-F Patient Instructions: Pantoprazole (By mouth), Tenofovir (By mouth) (Viread), Hepatitis B, Opioid Safety, Patient Portal & Theodore Instructions Discharge Attestations Time Spent in Discharge Care*: greater than 30 min Quality Metrics Clinical Quality Measures [ No reported AMI, CVA or VTE this stay] Coding Level of Care Code Acute Code for Chg Fwd Diagnoses Acute hepatitis B B16.9
[2025-06-02 16:39] LABS: Hepatitis B Virus DNA PCR 6.01 Log IU/mL (NOT DETECTED)
== END 2025-05-30 11:09 | disposition home or self-care (01) | DRG 443 ==
LOC: ER 05-29 02:17 → ER IP 05-29 03:31 → MEDSURG 05-29 07:27
PROVIDERS: Emergency Medicine; Admitting Provider Student in an Organized Health Care Education/Training Program; Emergency Provider Physician Assistant; Visit Provider Student in an Organized Health Care Education/Training Program
DX: B16.9 Acute hepatitis B without delta-agent and without hepatic coma (principal); F19.10 Other psychoactive substance abuse, uncomplicated; F10.11 Alcohol abuse, in remission; F17.210 Nicotine dependence, cigarettes, uncomplicated
CPT/HCPCS: 36415; 51702; 74177; 76705; 80053; 80074; 80306; 80307; 81003; 81596; 82247; 82248; 83605; 83690; 83735; 84100; 85025; 85610; 85730; 86706; 86707; 87040; 87340; 87350; 87517; 87637; 87806; 96372; 99285; J1644; J2470; J3480

== ENCOUNTER → 2025-06-04 12:35 | Outpatient (BNVA) | payer SELFPAY | PROVIDERS: Visit Provider Student in an Organized Health Care Education/Training Program | DX: B16.9 Acute hepatitis B without delta-agent and without hepatic coma (principal) | CPT/HCPCS: 36415; 80053 ==

== ENCOUNTER → 2025-07-07 12:40 | Outpatient (BNVA) | payer MEDICARE, MEDICAID, SELFPAY | PROVIDERS: Visit Provider Student in an Organized Health Care Education/Training Program | DX: B16.9 Acute hepatitis B without delta-agent and without hepatic coma (principal) | CPT/HCPCS: 36415; 80053 ==